=== PATIENT | male | born 1975 | race Caucasian/White ===

== ENCOUNTER 2018-01-19 10:31 | Outpatient (RCR) | payer BC, OTHER | END 2018-02-19 10:09 | disposition home or self-care (01) | PROVIDERS: ATTEND Nurse Practitioner | DX: M54.2 Cervicalgia (principal); Z98.1 Arthrodesis status ==

== ENCOUNTER → 2018-01-26 | Outpatient (CLI) | payer OTHER ==
--- NOTE | 2018-01-26 11:38 | Diagnostic Imaging Report ---
PROCEDURE: MR imaging cervical spine without contrast. TECHNIQUE: Multiplanar, multisequence MR imaging of the cervical spine was performed without contrast. INDICATION: Neck pain. COMPARISON: No prior MRI studies are available for comparison. FINDINGS: Curvature and alignment of the cervical spine is normal. There are postop changes of ACDF with anterior plate and screws transfixing the C4 through C6 levels. Hardware does produce some artifact. Intervertebral grafts at the C4-C5 and C5-C6 levels are also seen. The visualized cervical vertebral body marrow signal is normal. There is fairly normal height and hydration to the cervical discs. There is normal homogeneous signal intensity throughout the cervical spinal cord. No focal disc protrusion is seen. No central canal stenosis is identified. No neuroforaminal stenosis is seen. IMPRESSION: Postop changes C4 through C6 ACDF. No complicating features are seen. No central canal or neuroforaminal stenosis is identified. Dictated by: Dictated on workstation # [id number]
--- NOTE | 2018-01-26 12:28 | Diagnostic Imaging Report ---
EXAMINATION: Magnetic resonance imaging of the left shoulder without contrast. DATE: January 26, 2018. COMPARISON: None. HISTORY: 42-year-old male, left shoulder pain for three months. TECHNIQUE: Magnetic Resonance Imaging sequences were performed of the shoulder without contrast. FINDINGS: ROTATOR CUFF, LIGAMENTS, TENDONS, AND MUSCLES: The supraspinatus, infraspinatus, teres minor, and subscapularis tendons and muscles are intact. There is a small area of focal fat within the teres minor muscle. The additional rotator cuff muscle signal is unremarkable. LONG HEAD OF BICEPS: The biceps labral attachment and long head of the biceps tendon is intact. The long head of the biceps tendon is normally positioned within the bicipital groove. GLENOHUMERAL JOINT: The humeral head is well positioned relative to the glenoid. The labrum is grossly intact. There is no identified paralabral cyst. The articular cartilage is grossly intact. There is no joint effusion. ACROMIOCLAVICULAR JOINT: The acromioclavicular joint is normally aligned. The coracoclavicular and coracoacromial ligaments are intact. There are moderate acromioclavicular degenerative changes without large undersurface osteophyte. BONE: The bones all have normal configuration. There is prominent degenerative related marrow edema adjacent to the acromioclavicular joint. There is no acute fracture, bone contusion, or evidence of osteonecrosis. BURSAE AND SOFT TISSUES: The bursae and soft tissue surrounding the shoulder are unremarkable. IMPRESSION: 1. Intact rotator cuff. 2. Moderate acromioclavicular degenerative changes without large undersurface osteophyte. Prominent degenerative related marrow edema adjacent to the acromioclavicular joint. 3. Unremarkable appearance of the glenohumeral joint. 4. No acute fracture, bone contusion, or evidence of osteonecrosis. Dictated by: Dictated on workstation # [id number]
== END ==
LOC: RAD 10:13
PROVIDERS: ATTEND Nurse Practitioner
DX: M19.012 Primary osteoarthritis, left shoulder (principal); M54.2 Cervicalgia; Z98.1 Arthrodesis status
CPT/HCPCS: 72141; 73221

== ENCOUNTER → 2018-06-28 | Outpatient (CLI) | payer OTHER ==
--- NOTE | 2018-06-28 19:37 | Diagnostic Imaging Report ---
EXAMINATION: Right upper extremity ultrasound nonvascular. INDICATION: Wrist mass. FINDINGS: There are no prior studies available for comparison. By history, the patient has a palpable mass in the region of the wrist. The ultrasound examination of this area reveals that there is a 2.3 x 0.8 x 1.8 cm avascular hypoechoic mass in this area. I suspect that this is related to a fluid collection such as a hematoma or seroma. It would be less likely that this is a ganglion cyst. The radial artery runs directly posterior to this area. No other abnormality is identified. IMPRESSION: There is a 2.3 x 0.8 x 1.8 cm fluid collection in the area of the patient's palpable abnormality. This may represent a hematoma or seroma. It would be less likely that this is a ganglion cyst. If further imaging is desired, then MRI will be recommended. Dictated by: Dictated on workstation # [id number]
== END ==
LOC: RAD 11:56
PROVIDERS: ATTEND Surgery
DX: R22.31 Localized swelling, mass and lump, right upper limb (principal)
CPT/HCPCS: 76881

== ENCOUNTER 2019-06-27 16:14 | Emergency (ER) | payer OTHER ==
[~2019-06-27] VITALS: Ht 170 cm; Wt 77.0 kg
[2019-06-27] MEDS ORDERED: RT-ALBUTEROL/IPRATROPIUM 3 ML (DUONEB) VIAL INH ONE (16:45)
--- NOTE | 2019-06-27 16:47 | ED Dyspnea ---
General Chief Complaint: Respiratory Problems Stated Complaint: SOB Nursing Triage Note: Pt ambulates to RM 6 with C/O SOB. Pt states he woke up with a migraine at noon today and it's been "hard to get a deep breath" since then. Pt is 95% on RA upon arrival. Put on 2L at this time. Pt denies any Hx of asthma or previous resp. probs. Denies chest pain at this time. (HUBERT ORTIZ MED STUDENT) Source of Information: Patient Exam Limitations: No Limitations (ORLANDO FORD MD) History of Present Illness Date Seen by Provider: Jun 27, 2019 Time Seen by Provider: 16:30 Initial Comments The patient is a wd/wn 43 y/o male who is here with a chief complaint of shortness of breath. He reports that he started having shortness of breath around 12 pm today. He admits to previous episodes that quickly resolved and were never this severe. He also complains of migraine that started this morning and has since resolved. The patient also reports dry heaves this morning after the onset of the migraine. He denies cough, fevers, recent travel, or leg pains. He states that he has no history of allergies or asthma. Timing/Duration: 4-6 Hours Severity: Moderate Prior Episodes/Possible Cause: Occasional Episodes (HUBERT ORTIZ MED STUDENT) Initial Comments Does admit to smoking approximately a pack of cigarettes a day for long-term. Feels tight in the chest. Timing/Duration: 4-6 Hours Severity: Moderate Prior Episodes/Possible Cause: Occasional Episodes Modifying Factors: Improves With Rest Associated Symptoms: Cough, Fever, Wheezing (ORLANDO FORD MD) Allergies and Home Medications Allergies Coded Allergies: No Known Drug Allergies (Unverified , 06/27/19) Home Medications Albuterol Sulfate 1 Puff Puff, 2 PUFF IH Q4H PRN for WHEEZING 1 PUFF = 90 MCG Prescribed by: ORLANDO FORD on 06/27/191734 Prednisone 20 Mg Tab, 40 MG PO DAILY Prescribed by: ORLANDO FORD on 06/27/191734 Patient Home Medication List Home Medication List Reviewed: Yes (ORLANDO FORD MD) Review of Systems Review of Systems Constitutional: No diaphoresis, No fever EENTM: No blurred vision, No double vision Respiratory: No cough; short of breath Cardiovascular: No chest pain, No palpitations Gastrointestinal: No abdominal pain, No constipation, No diarrhea (HUBERT ORTIZ STUDENT) Constitutional: see HPI Respiratory: see HPI, wheezing Cardiovascular: no symptoms reported Gastrointestinal: see HPI Musculoskeletal: no symptoms reported Skin: no symptoms reported (ORLANDO FORD MD) All Other Systems Reviewed Negative Unless Noted: Yes (ORLANDO FORD MD) Past Sbqvknu-Ytchsr-Dwsdrw Hx Past Med/Social Hx: Reviewed Nursing Past Med/Soc Hx (ORLANDO FORD MD) Patient Social History Alcohol Use: Occasionally Uses Recreational Drug Use: No Smoking Status: Current Everyday Smoker Type Used: Cigarettes Recent Foreign Travel: No Contact w/Someone Who Travel: No Recent Infectious Disease Expo: No (HUBERT ORTIZ STUDENT) Family Medical History Reviewed Nursing Family Hx (ORLANDO FORD MD) Physical Exam Vital Signs Vital Signs - First Documented 06/27/19 16:23 Temp 36.4 Pulse 78 Resp 17 B/P (MAP) 167/95 (119) Pulse Ox 99 O2 Delivery Nasal Cannula (ORLANDO FORD MD) Vital Signs Capillary Refill : Less Than 3 Seconds (HUBERT ORTIZ STUDENT) Height, Weight, BMI Height: '" Weight: lbs. oz. kg; 26.00 BMI Method: General Appearance: No Apparent Distress, WD/WN HEENT: PERRL/EOMI, Moist Mucous Membranes Respiratory: Chest Non Tender, Lungs Clear, Decreased Breath Sounds Cardiovascular: Regular Rate, Rhythm, No Edema, No Murmur Neurologic/Psychiatric: Alert, Oriented x3, No Motor/Sensory Deficits Skin: Normal Color, Warm/Dry (HUBERT ORTIZ STUDENT) General Appearance: No Apparent Distress, WD/WN Respiratory: Decreased Breath Sounds, Wheezing Cardiovascular: Regular Rate, Rhythm, No Edema, No Murmur Gastrointestinal: Non Tender, Soft Neurologic/Psychiatric: Alert, Oriented x3 Skin: Normal Color, Warm/Dry (ORLANDO FORD MD) Progress/Results/Core Measures Results/Orders My Orders Orders - ORLANDO FORD MD Albuterol/Ipra Inhalation Soln (Duoneb I (06/27/19 16:45) Svn Small Volume Nebulizer (06/27/19 16:38) Ekg Tracing (06/27/19 16:38) (ORLANDO FORD MD) Medications Given in ED Current Medications Medications Dose Ordered Sig/Julito Route Start Time Stop Time Status Last Admin Dose Admin Albuterol/ Ipratropium 3 ml ONCE ONCE INH 06/27/19 16:45 06/27/19 16:47 DC 06/27/19 16:53 3 ML (ORLANDO FORD MD) Vital Signs/I&O 06/27/19 06/27/19 16:23 16:53 Temp 36.4 Pulse 78 Resp 17 B/P (MAP) 167/95 (119) Pulse Ox 99 96 O2 Delivery Nasal Cannula Room Air (ORLANDO FORD MD) Blood Pressure Mean: 119 Progress Progress Note : Time: 16:45 Progress Note The patient is resting comfortably in the exam room. He is administered O2 by nasal canula with some relief of shortness of breath. He will have a duonebulizer treatment for treatment of suspected asthma. (HUBERT ORTIZ MED STUDENT) Progress Note : Progress Note High seen and evaluated patient and agree with above except as indicated. I have directed the plan of care. Patient is here with shortness of air but seems to be orchitis/reactive airway disease related. Duo neb treatment initiated and this did completely resolve his symptoms. We will initiate outpatient albuterol MDI as well as prednisone. I did discuss with him about smoking cessation as well as his . Discharged home with return precautions. Patient and family verbalize understanding instructions and agreement with plan. (ORLANDO FORD MD) Departure Impression Primary Impression: RAD (reactive airway disease) with wheezing Qualified Codes: J45.21 - Mild intermittent asthma with (acute) exacerbation Disposition: 01 HOME, SELF-CARE Condition: Improved Departure-Patient Inst. Decision time for Depature: 17:31 (ORLANDO FORD MD) Referrals: NO,LOCAL PHYSICIAN (PCP/Family) Primary Care Physician Patient Instructions: Acute Bronchitis, Adult (DC) Add. Discharge Instructions: All discharge instructions reviewed with patient and/or family. Voiced understan kiera. You should stop smoking. Talk with her doctor about this and try to quit at the same time as your spouse. Take medications as directed. Follow up with your DrBello in a few days for recheck. Return for worse pain, fever, vomiting, weakness, breathing problems or other concerns as needed. Scripts Prednisone (Prednisone) 20 Mg Tab 40 MG PO DAILY, #8 TAB 0 Refills Prov: ORLANDO FORD MD 06/27/19 Albuterol Sulfate (PROAIR HFA) 1 Puff Puff 2 PUFF IH Q4H PRN for WHEEZING, #1 INHALER 1 Refill 1 PUFF = 90 MCG Prov: ORLANDO FORD MD 06/27/19 HUBERT ORTIZ MED STUDENT Jun 27, 2019 16:47 ORLANDO FORD MD Jun 27, 2019 17:35
[2019-06-27] MEDS ORDERED: RT-ALBUINH IH (17:35)
[2019-06-27] MEDS ORDERED: PRD20T PO (17:35)
[2019-06-27 17:42] VITALS: BP 165/94
[2019-06-28] MEDS ORDERED: BUDE90AE2 IH (21:58)
[2019-06-28] MEDS ORDERED: DOXY100C42 PO (21:58)
[2019-06-28] MEDS ORDERED: HYDR-700 PO (21:58)
== END 2019-06-27 17:42 | disposition home or self-care (01) ==
LOC: EDUNIT# 16:14 → ER 16:14
DX: J45.909 Unspecified asthma, uncomplicated (principal); F17.210 Nicotine dependence, cigarettes, uncomplicated
CPT/HCPCS: 93005; 94640

== ENCOUNTER 2019-06-28 19:28 | Emergency (ER) | payer OTHER ==
[~2019-06-28] VITALS: Ht 170 cm; Wt 81.0 kg
[~2019-06-28 19:28] MED LIST: PRD20T PO; RT-ALBUINH IH
[2019-06-28] MEDS ORDERED: methylPREDNISolone 125 MG (Solu-MEDROL) VIAL IV STA (19:43)
[2019-06-28 19:57] LABS: BASOPHILS % (AUTO) 0 % (0-10); EOSINOPHILS % (AUTO) 0 % (0-10); HEMATOCRIT 44 % (40-54); HEMOGLOBIN 15.2 G/DL (13.3-17.7); LYMPHOCYTES # (AUTO) 1.4 X 10^3 (1.0-4.0); LYMPHOCYTES % (AUTO) 10 % (12-44); MEAN CORPUSCULAR HEMOGLOBIN 34 PG (25-34); MEAN CORPUSCULAR HGB CONC 35 G/DL (32-36); MEAN CORPUSCULAR VOLUME 98 FL (80-99); MEAN PLATELET VOLUME 10.3 FL (7.4-10.4); MONOCYTES # (AUTO) 1.2 X 10^3 (0.0-1.0); MONOCYTES % (AUTO) 8 % (0-12); NEUTROPHILS # (AUTO) 11.8 X 10^3 (1.8-7.8); NEUTROPHILS % (AUTO) 82 % (42-75); PLATELET COUNT 243 10^3/uL (130-400); RED CELL DISTRIBUTION WIDTH 13.6 % (10.0-14.5); WHITE BLOOD COUNT 14.4 10^3/uL (4.3-11.0)
[2019-06-28 20:00] LABS: BILIRUBIN,URINE NEGATIVE (NEGATIVE); CLARITY,URINE CLEAR; COLOR,URINE YELLOW; GLUCOSE, URINE (UA) NEGATIVE (NEGATIVE); KETONES,URINE NEGATIVE (NEGATIVE); LEUKOCYTE ESTERASE ,URINE 1+ (NEGATIVE); NITRITE,URINE NEGATIVE (NEGATIVE); PH,URINE 7 (5-9); PROTEIN,URINE 1+ (NEGATIVE); UROBILINOGEN,URINE NORMAL (NORMAL)
--- NOTE | 2019-06-28 20:11 | Diagnostic Imaging Report ---
INDICATION: Shortness of breath COMPARISON: 10/20/2008 FINDINGS: Frontal and lateral views the chest demonstrate clear lungs bilaterally. The heart size is normal. There is no pneumothorax. Osseous structures are normal. IMPRESSION: No acute findings. Normal chest. Dictated by: Dictated on workstation # [id number]
[2019-06-28 20:19] LABS: BAND NEUTROPHILS 3 %; LYMPHOCYTES % (MANUAL) 10 %; MONOCYTES % (MANUAL) 3 %; NEUTROPHILS % (MANUAL) 84 %; RBC MORPH NORMAL
[2019-06-28 20:21] LABS: ALANINE AMINOTRANSFERASE 24 U/L (0-55); ALBUMIN 4.6 GM/DL (3.2-4.5); ALKALINE PHOSPHATASE 74 U/L (40-136); BILIRUBIN,TOTAL 0.3 MG/DL (0.1-1.0); BUN/CREATININE RATIO 12; CALCIUM 9.5 MG/DL (8.5-10.1); CARBON DIOXIDE 22 MMOL/L (21-32); CHLORIDE 106 MMOL/L (98-107); CREATINE KINASE 120 U/L (30-200); CREATININE SERUM 0.99 MG/DL (0.60-1.30); GFR ESTIMATED > 60; GLUCOSE 132 MG/DL (70-105); MAGNESIUM 1.8 MG/DL (1.6-2.4); POTASSIUM 4.6 MMOL/L (3.6-5.0); SODIUM 140 MMOL/L (135-145); TOTAL PROTEIN 7.4 GM/DL (6.4-8.2)
[2019-06-28 20:24] LABS: BACTERIA,URINE TRACE /HPF; WBC,URINE RARE /HPF
[2019-06-28 20:29] LABS: AMPHETAMINE SCREEN, URINE NEGATIVE (NEGATIVE); BARBITURATE SCREEN URINE NEGATIVE (NEGATIVE); BENZODIAZEPINES SCREEN URINE NEGATIVE (NEGATIVE); CANNABINOID SCREEN, URINE POSITIVE (NEGATIVE); COCAINE SCREEN URINE NEGATIVE (NEGATIVE); METHADONE STAT NEGATIVE (NEGATIVE); METHAMPHETAMINE SCREEN URINE S NEGATIVE (NEGATIVE); OPIATE SCREEN URINE POSITIVE (NEGATIVE); OXYCODONE STAT NEGATIVE (NEGATIVE); PROPOXYPHENE STAT NEGATIVE (NEGATIVE); TRICYCLIC ANTIDEPRESSANTS SCRE NEGATIVE (NEGATIVE)
[2019-06-28 20:34] LABS: CREATINE KINASE MB 1.9 NG/ML (<6.6); TSH (THYROID ANALYZER) 0.38 UIU/ML (0.35-4.94)
[2019-06-28 20:42] LABS: INR 0.9 (0.8-1.4); PROTHROMBIN TIME PATIENT 12.7 SEC (12.2-14.7)
--- NOTE | 2019-06-28 21:35 | Diagnostic Imaging Report ---
PROCEDURE: CT angiography of the chest with contrast. TECHNIQUE: Multiple contiguous axial images were obtained through the chest after uneventful bolus administration of intravenous contrast. 3D reconstructed CTA MIP acquisitions were also performed. Auto Exposure Controls were utilized during the CT exam to meet ALARA standards for radiation dose reduction. INDICATION: Shortness of breath. COMPARISON: None. FINDINGS: The heart, pulmonary arteries and aorta are normal. There is no pulmonary embolism or aortic dissection. No aneurysm is seen. There is no lymphadenopathy. No pericardial effusion identified. There is minimal atelectasis in the left base. The right lung is clear. No mass, nodule or infiltrate is seen. There is no pneumothorax. Osseous structures are normal. The visualized upper abdominal solid organs are intact. IMPRESSION: 1. No pulmonary embolism or acute aortic pathology. 2. Atelectasis in the left lung base. Dictated by: Dictated on workstation # [id number]
--- NOTE | 2019-06-28 21:41 | ED Respiratory ---
General Chief Complaint: Respiratory Problems Stated Complaint: SOA Nursing Triage Note: Pt ambulates to Rm 5 with C/O SOA since noon today. Pt was in ER yesterday, Dx with acute bronchitis and presribed an inhaler. Pt came back today because he has been "using inhaler constantly". Pt states "can't seem to get a deep breath". Source: patient History of Present Illness Date Seen by Provider: Jun 28, 2019 Time Seen by Provider: 19:37 Initial Comments PT ARRIVES VIA POV C/O SHORTNESS OF BREATH SINCE YESTERDAY NO CHEST PAIN HAS HAD SLIGHT COUGH NO FEVER. NO SWELLING IN LEGS/FEET OR PAIN IN CALVES NO HISTORY OF RESPIRATORY PROBLEMS OR ALLERGIES. HOWEVER, HAS HAD BRIEF EPISODES WHERE HE FELT LIKE HE COULDN'T BREATHE. BUT NEVER SOUGHT CARE PT SEEN IN ER AND DX WITH REACTIVE AIRWAYS AND GIVEN INHALER--NO SPACER. ALSO GOT PREDNISONE PT STATES HE HAS "BEEN USING IT CONSTANTLY" AND IS NOT HELPING STATES "I PANIC WHEN I THINK I CAN'T BREATHE" PT DOES SMOKE 1 PPD OF CIGARETTES, ALSO SMOKES MARIJUANA. PCP: [facility] Allergies and Home Medications Allergies Coded Allergies: No Known Drug Allergies (Unverified , 06/27/19) Home Medications Albuterol Sulfate 1 Puff Puff, 2 PUFF IH Q4H PRN for WHEEZING 1 PUFF = 90 MCG Prescribed by: ORLANDO FORD on 06/27/191734 Prednisone 20 Mg Tab, 40 MG PO DAILY Prescribed by: ORLANDO FORD on 06/27/191734 Patient Home Medication List Home Medication List Reviewed: Yes Review of Systems Review of Systems Constitutional: no symptoms reported; No chills, No diaphoresis, No dizziness, No fever EENTM: no symptoms reported; No nose congestion Respiratory: see HPI, cough, short of breath Cardiovascular: no symptoms reported; No chest pain, No edema, No palpitations, No syncope, No vascular heart diseas Gastrointestinal: no symptoms reported Genitourinary: no symptoms reported Musculoskeletal: no symptoms reported Skin: no symptoms reported Psychiatric/Neurological: See HPI, Anxiety; Denies Headache, Denies Numbness, Denies Paresthesia, Denies Seizure, Denies Tingling, Denies Weakness Hematologic/Lymphatic: No Symptoms Reported Immunological/Allergic: no symptoms reported Past Nxfgnan-Udserp-Jwfynf Hx Past Med/Social Hx: Reviewed and Corrections made Patient Social History Alcohol Use: Regular Use (6 PACK/WEEK) Recreational Drug Use: Yes (THC) Drug of Choice: THC Smoking Status: Current Everyday Smoker (1 PPD) Type Used: Cigarettes (1 PPD) 2nd Hand Smoke Exposure: No Recent Foreign Travel: No Contact w/Someone Who Travel: No Recent Infectious Disease Expo: No Recent Hopitalizations: No Physical Abuse: No Sexual Abuse: No Mistreated: No Fear: No Seasonal Allergies Seasonal Allergies: No Past Medical History Surgeries: Yes (CERVICAL SPINE FUSION; REMOVAL OF "RECTAL POLYP" " A KID") Orthopedic, Rectal, Tonsillectomy Respiratory: No Cardiac: Yes Hypertension Neurological: No Genitourinary: No Gastrointestinal: Yes (STATES HE HAD A "RECTAL POLYP REMOVED A KID" ) Musculoskeletal: Yes (CHRONIC NECK PAIN --S/P CERVICAL SPINE FUSION--CHRONIC OPIATE USE) Endocrine: No HEENT: Yes (TONSILLECTOMY) Tonsilitis Cancer: No Psychosocial: No Integumentary: No Blood Disorders: No Physical Exam Vital Signs - First Documented 06/28/19 19:38 Temp 36.5 Pulse 82 Resp 20 B/P (MAP) 155/91 (112) O2 Delivery Room Air Capillary Refill : Less Than 3 Seconds Height: '" Weight: lbs. oz. kg; 28.00 BMI Method: General Appearance: WD/WN, no apparent distress, other (STRONG ODOR OF CIGARET MARYAM. DOES NOT APPEAR TO BE IN ANY DISCOMFORT OR DISTRESS. 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, no motor/sensory deficits, alert, oriented x 3, other (MILDLY ANXIOUS) Skin: normal color, warm/dry Progress/Results/Core Measures Suspected Sepsis Recent Fever Within 48 Hours: No Infection Criteria Present: None New/Unexplained Altered Menta: No Sepsis Screen: No Definite Risk SIRS Temperature: Pulse: 82 Respiratory Rate: 20 Laboratory Tests 06/28/19 19:49: White Blood Count 14.4H Blood Pressure 155 /91 Mean: 112 Laboratory Tests 06/28/19 19:49: Creatinine 0.99, INR Comment 0.9, Platelet Count 243, Total Bilirubin 0.3 Results/Orders Lab Results Laboratory Tests Test 06/28/19 19:49 06/28/19 19:53 Range/Units White Blood Count 14.4 H 4.3-11.0 10^3/uL Red Blood Count 4.49 4.35-5.85 10^6/uL Hemoglobin 15.2 13.3-17.7 G/DL Hematocrit 44 40-54 % Mean Corpuscular Volume 98 80-99 FL Mean Corpuscular Hemoglobin 34 25-34 PG Mean Corpuscular Hemoglobin Concent 35 32-36 G/DL Red Cell Distribution Width 13.6 10.0-14.5 % Platelet Count 243 130-400 10^3/uL Mean Platelet Volume 10.3 7.4-10.4 FL Neutrophils (%) (Auto) 82 H 42-75 % Lymphocytes (%) (Auto) 10 L 12-44 % Monocytes (%) (Auto) 8 0-12 % Eosinophils (%) (Auto) 0 0-10 % Basophils (%) (Auto) 0 0-10 % Neutrophils # (Auto) 11.8 H 1.8-7.8 X 10^3 Lymphocytes # (Auto) 1.4 1.0-4.0 X 10^3 Monocytes # (Auto) 1.2 H 0.0-1.0 X 10^3 Eosinophils # (Auto) 0.0 0.0-0.3 10^3/uL Basophils # (Auto) 0.0 0.0-0.1 10^3/uL Neutrophils % (Manual) 84 % Lymphocytes % (Manual) 10 % Monocytes % (Manual) 3 % Band Neutrophils 3 % Blood Morphology Comment NORMAL Prothrombin Time 12.7 12.2-14.7 SEC INR Comment 0.9 0.8-1.4 Activated Partial Thromboplast Time 34 24-35 SEC Sodium Level 140 135-145 MMOL/L Potassium Level 4.6 3.6-5.0 MMOL/L Chloride Level 106 98-107 MMOL/L Carbon Dioxide Level 22 21-32 MMOL/L Anion Gap 12 5-14 MMOL/L Blood Urea Nitrogen 12 7-18 MG/DL Creatinine 0.99 0.60-1.30 MG/DL Estimat Glomerular Filtration Rate > 60 BUN/Creatinine Ratio 12 Glucose Level 132 H 70-105 MG/DL Calcium Level 9.5 8.5-10.1 MG/DL Corrected Calcium 8.5-10.1 MG/DL Magnesium Level 1.8 1.6-2.4 MG/DL Total Bilirubin 0.3 0.1-1.0 MG/DL Aspartate Amino Transf (AST/SGOT) 15 5-34 U/L Alanine Aminotransferase (ALT/SGPT) 24 0-55 U/L Alkaline Phosphatase 74 40-136 U/L Total Creatine Kinase 120 30-200 U/L Creatine Kinase MB 1.9 <6.6 NG/ML Myoglobin 64.7 10.0-92.0 NG/ML Troponin I < 0.028 <0.028 NG/ML B-Type Natriuretic Peptide < 10.0 <100.0 PG/ML Total Protein 7.4 6.4-8.2 GM/DL Albumin 4.6 H 3.2-4.5 GM/DL TSH [facility] Testing 0.38 0.35-4.94 UIU/ML Serum Alcohol < 10 <10 MG/DL Urine Color YELLOW Urine Clarity CLEAR Urine pH 7 5-9 Urine Specific [place] 1.010 L 1.016-1.022 Urine Protein 1+ H NEGATIVE Urine Glucose (UA) NEGATIVE NEGATIVE Urine Ketones NEGATIVE NEGATIVE Urine Nitrite NEGATIVE NEGATIVE Urine Bilirubin NEGATIVE NEGATIVE Urine Urobilinogen NORMAL NORMAL MG/DL Urine Leukocyte Esterase 1+ H NEGATIVE Urine RBC (Auto) NEGATIVE NEGATIVE Urine RBC NONE /HPF Urine WBC RARE /HPF Urine Crystals NONE /LPF Urine Bacteria TRACE /HPF Urine Casts NONE /LPF Urine Mucus NEGATIVE /LPF Urine Culture Indicated NO Urine Opiates Screen POSITIVE H NEGATIVE Urine Oxycodone Screen NEGATIVE NEGATIVE Urine Methadone Screen NEGATIVE NEGATIVE Urine Propoxyphene Screen NEGATIVE NEGATIVE Urine Barbiturates Screen NEGATIVE NEGATIVE Ur Tricyclic Antidepressants Screen NEGATIVE NEGATIVE Urine Phencyclidine Screen NEGATIVE NEGATIVE Urine Amphetamines Screen NEGATIVE NEGATIVE Urine Methamphetamines Screen NEGATIVE NEGATIVE Urine Benzodiazepines Screen NEGATIVE NEGATIVE Urine Cocaine Screen NEGATIVE NEGATIVE Urine Cannabinoids Screen POSITIVE H NEGATIVE Micro Results Microbiology 06/28/19 Influenza Types A,B Antigen (MAXIM) - Final, Complete My Orders Orders - LUIS ANGEL CARDONA DO Ed Iv/Invasive Line Start (06/28/19 19:43) Ekg Tracing (06/28/19 19:43) Monitor-Rhythm Ecg Trace Only (06/28/19 19:43) Chest Pa/Lat (2 View) (06/28/19 19:43) Methylprednisolone Sod Succ (Solu-Medrol (06/28/19 19:43) Alcohol (06/28/19 19:43) BNP (06/28/19 19:43) Cbc With Automated Diff (06/28/19 19:43) Comprehensive Metabolic Panel (06/28/19 19:43) Creatine Kinase (06/28/19 19:43) Creatine Kinase Mb (06/28/19 19:43) Drug Screen Stat (Urine) (06/28/19 19:43) Magnesium (06/28/19 19:43) Protime With Inr (06/28/19 19:43) Partial Thromboplastin Time (06/28/19 19:43) Thyroid Analyzer (06/28/19 19:43) Ua Culture If Indicated (06/28/19 19:43) Influenza A And B Antigens (06/28/19 19:43) Myoglobin Serum (06/28/19 19:43) Troponin I (06/28/19 19:43) Manual Differential (06/28/19 19:49) Ct Angio Chest W (06/28/19 21:03) Vital Signs/I&O 06/28/19 19:38 Temp 36.5 Pulse 82 Resp 20 B/P (MAP) 155/91 (112) O2 Delivery Room Air Capillary Refill : Less Than 3 Seconds Blood Pressure Mean: 112 Progress Note : Progress Note GIVEN SOLU-MEDROL, STATES HE FEELS BETTER. UNEVENTFUL ER STAY ECG Initial ECG Impression Date: Jun 28, 2019 Initial ECG Impression Time: 19:41 Initial ECG Rate: 85 Initial ECG Rhythm: Normal Sinus Initial ECG Comparisson: No Previous ECG Available Diagnostic Imaging Comments CXR--NO ACUTE PROCESS, PER RADIOLOGIST REPORT CT CHEST ANGIOGRAM--NO P.E., MINIMAL ATELECTASIS LEFT LUNG BASE, OTHERWISE NO ACUTE PROCESS, PER RADIOLOGIST REPORT AT 2146 Reviewed: Reviewed by Me Departure Impression Primary Impression: SUBJECTIVE DYSPNEA Additional Impressions: Anxiety POSSIBLE BRONCHITIS WITH REACTIVE AIRWAY Smoker Disposition: 01 HOME, SELF-CARE Condition: Improved Departure-Patient Inst. Referrals: NO,LOCAL PHYSICIAN (PCP/Family) Primary Care Physician Patient Instructions: Acute Bronchitis, Adult (DC), Anxiety, Adult (DC), Quitting Smoking for Older Adults, Smoking: Not Just Harmful to Your Lungs and Heart Add. Discharge Instructions: USE YOUR PULMICORT INHALER (STEROID INHALER ) TWICE A DAY EVERY DAY ONLY USE YOUR ALBUTEROL INHALER EVERY 4 HOURS, ONLY WHEN NEEDED. USE SPACER WITH INHALER AT ALL TIMES FINISH PREDNISONE PRESCRIBED TYLENOL AND MOTRIN NEEDED FOR PAIN NO SMOKING FOLLOW UP WITH YOUR DR AT [place] NEXT WEEK FOR FURTHER CARE All discharge instructions reviewed with patient and/or family. Voiced understanding. Scripts Budesonide (Pulmicort Flexhaler) 90 Mcg Aer.pow.ba 90 MCG IH BID, #1 GM Prov: LUIS ANGEL CARDONA DO 06/28/19 Hydroxyzine HCl (Hydroxyzine HCl) 25 Mg Tablet 25-50 MG PO Q6H for Anxiety, #20 TAB Prov: LUIS ANGEL CARDONA DO 06/28/19 Doxycycline Monohydrate (Doxycycline Monohydrate) 100 Mg Capsule 100 MG PO BID, #20 CAP Prov: LUIS ANGEL CARDONA DO 06/28/19 LUIS ANGEL CARDONA DO Jun 28, 2019 21:41
[2019-06-28] MEDS ORDERED: RX-HYDROXYZINE PAMOATE 25 MG CAP #4 PO STA (21:51)
[2019-06-28] MEDS ORDERED: RX-DOXYCYCLINE 100 MG (VIBRAMYCIN) TAB PPK#2 PO STA (21:51)
[2019-06-28] MEDS ORDERED: HYDR-700 PO (21:58)
[2019-06-28] MEDS ORDERED: DOXY100C42 PO (21:58)
[2019-06-28] MEDS ORDERED: BUDE90AE2 IH (21:58)
[2019-06-28 22:11] VITALS: BP 120/78
== END 2019-06-28 22:10 | disposition home or self-care (01) ==
LOC: EDUNIT# 19:28 → ER 19:29
DX: R06.00 Dyspnea, unspecified (principal); F41.9 Anxiety disorder, unspecified; I10 Essential (primary) hypertension; F17.210 Nicotine dependence, cigarettes, uncomplicated; Z90.89 Acquired absence of other organs
CPT/HCPCS: 36415; 71046; 71275; 80053; 80306; 80320; 81000; 82550; 82553; 83735; 83874; 83880; 84443; 84484; 85007; 85027; 85610; 85730; 87804; 93005; 93041